=== PATIENT | female | born 2000 | race Asian ===

== ENCOUNTER 2019-07-19 19:49 | Emergency (ER) | payer OTHER ==
[~2019-07-19] VITALS: Ht 162.6 cm; Wt 68.7 kg
[2019-07-19 21:40] VITALS: BP 132/82
== END 2019-07-19 21:40 | disposition home or self-care (01) ==
LOC: ED 19:49
DX: B34.9 Viral infection, unspecified (principal)
CPT/HCPCS: 87804; U0002